=== PATIENT | female | born 1955 | race Caucasian/White ===

== ENCOUNTER 2023-11-12 11:12 | Outpatient (CLI) | payer MEDICARE, SELFPAY ==
--- NOTE | 2023-11-12 11:47 | XR_ITS ---
FINAL REPORT CLINICAL HISTORY: LOW BACK PAIN W/SCIATICA COMPARISON: None FINDINGS: 3 views of the lumbar spine were obtained. There is no evidence of fracture or dislocation. There is moderate degenerative change. Levoscoliosis is noted. There is mild anterolisthesis of L4 on L5. Facet arthropathy is noted in the lower lumbar spine. IMPRESSION: Moderate degenerative change without acute bony abnormality. Reviewed, Interpreted and Dictated by Danny Escalante III, MD Transcribed by Debbie Brock Authenticated and . [facility]
== END 2023-11-12 23:59 ==
PROVIDERS: PCP Family Medicine; Visit Provider Nurse Practitioner Family
DX: M54.40 Lumbago with sciatica, unspecified side (principal)
CPT/HCPCS: 72110

== ENCOUNTER → 2023-11-20 13:01 | Outpatient (POV) | payer MEDICARE, SELFPAY ==
[2023-11-20 13:11] VITALS: BP 143/98; PULSE 95; RESP 18; O2SAT 97; BMI 31.9
--- NOTE | 2023-11-20 13:24 | A.OFFVIS_ITS ---
HPI Data of Consult Patient: new to practice Consult date: 11/20/23 Requesting Physician: Ana Evans APRN Primary Care Provider: Rome Koehler MD Consult Narrative Reason for consult: Low back pain History of present illness: Ms. Mcknight is a 68 year old female who presents today as a new patient. She is a referral from Luisa Mondragon's office. Today she rates her pain a 9 out of 10. Patient states her pain is all in her low back. Patient states her pain in her low back has been going on for years and progressively worsened over time. Patient states she was seen at the [facility] and saw Dr. España who did do injections. She states that these did typically provide significant relief however over time they became less effective. She does state that she had a lumbar RFA that did provide improvement over the last 3 years and it is just now starting to wear off. She describes her pain as an aching, throbbing sensation that is severe. She states the pain does interfere with her ability perform activities of daily living such as cooking and cleaning. She states in the past she has not tolerated steroid injections due to it making her go psychotic. Patient is interested in repeating her prior injection of the lumbar RFA. Patient has tried [id number] Tylenol and ibuprofen along with heat and ice and topicals with minimal relief. Patient was tried on gabapentin with no additional help. Patient does use Aleve. Patient does have a history of colon cancer patient does states she has a history of SI issues as well. She is currently managed with Hayden 5 mg 3 times a day from her PCP. Her Wayne has been reviewed and is appropriate. CC: Ana Evans APRN [facility] Disclaimer: The information contained in this section may have been updated after the patient was seen, as this information can be updated by other users. Medical History (Updated 11/20/23 @ 15:14 by Ana Evans APRN) Colon cancer Depression HTN (hypertension) Sacroiliitis Surgical History (Updated 11/20/23 @ 13:14 by Salena Booth RN) History of colon resection Family History (Updated 11/20/23 @ 13:14 by Salena Booth RN) Other Diabetes Social History (Updated 11/20/23 @ 13:24 by Salena Booth RN) Smoking Status: Never smoker alcohol intake: never substance use type: denies use current occupational status: employed Travel in the last 8 weeks: None household members: family housing: house Review of Systems Review of Systems Review of systems:: pertinent systems reviewed and negative unless documented below Review of systems (narrative): Review of Systems: General: No recent weight changes, no fever, no sleep disturbances Respiratory: No cough, no shortness of air, no recurring pulmonary infections Cardiovascular/peripheral vascular: No chest pain, no palpitations, no edema, no shortness of breath Gastrointestinal: No new onset incontinence, normal bowel movements reported Genitourinary: No new onset incontinence Musculoskeletal:low back pain Psychiatric: [Normal mood/affect] Neurological: [Denies weakness in extremities], [denies balance issues] Meds Home Medications and Allergies Home Medications Medication Instructions Recorded Confirmed Type fluoxetine 40 mg capsule (Prozac) 40 mg PO BID 09/22/18 11/20/23 History hydrochlorothiazide 25 mg tablet 25 mg PO DAILY 09/22/18 11/20/23 History ibuprofen 800 mg tablet 800 mg PO TID #90 tabs 11/28/18 11/20/23 Rx meclizine 25 mg tablet (Motion 25 mg PO BID dizziness 7 days #14 10/16/20 11/20/23 Rx Relief (meclizine)) tabs ondansetron 4 mg disintegrating 4 mg PO Q8H PRN nausea and 10/16/20 11/20/23 Rx tablet vomiting 4 days #12 tabs hydrocodone 5 mg-acetaminophen 325 1 tab PO Q8HP PRN Pain 11/20/23 11/20/23 History mg tablet New Prescriptions to Start Prescriptions: Allergies Allergy/AdvReac Type Severity Reaction Status Date / Time No Known Allergies Allergy Verified 10/16/20 11:14 Objective Narrative: Physical Exam: General: Alert and oriented x3, no acute distress, pleasant and cooperative Lungs: Respirations even and unlabored, symmetrical chest expansion Eyes: PERRL Musculoskeletal: Flexion and extension of lumbar [spine] somewhat guarded secondary to pain, [antalgic gait noted] positive Kemps test Neurological: Speech clear, no gross sensory deficit Assessment and Plan *Assessment and plan (1) Lumbar facet arthropathy: Status: Acute Category: Medical Code(s): M47.816 - Spondylosis without myelopathy or radiculopathy, lumbar region (2) Low back pain: Status: Acute Qualifiers: Chronicity: chronic Back pain laterality: bilateral Sciatica presence: unspecified whether sciatica present Qualified Code(s): M54.50 - Low back pain, unspecified; G89.29 - Other chronic pain Category: Medical Code(s): M54.50 - Low back pain, unspecified Plan Patient is experiencing significant pain in her low back with limited range of motion of her lumbar spine and a positive Kemps test. I have discussed with the patient that she may benefit from a lumbar medial branch block bilaterally. Risk and benefits were discussed with the patient and she would like to proceed forward with this plan of care. Due to the patient's previous history of having side effects to the steroid we will just use the numbing medication for a diagnostic block. I have counseled the patient if she has a successful block we will plan on repeating it a second time and that again if she has significant relief we will proceed forward with the lumbar RFA at a later date. I will also proceed forward with ordering a MRI without contrast of her lumbar spine. Patient has tried and failed conservative treatment such as oral medication, heat and ice, topicals, physical therapy in the past, current home exercise and stretching program for longer than 6 weeks. Patient will be scheduled for a diagnostic lumbar medial branch block bilaterally L4-L5 and L5-S1 under fluoroscopic guidance. Patient has been instructed to contact the clinic with any concerns before the next appointment. Dr. Sorensen has reviewed this note and agrees with this plan of care. This note was dictated using voice recognition software and make contain errors or omissions.
== END ==
PROVIDERS: PCP Family Medicine; Visit Provider Nurse Practitioner Family
DX: M47.816 Spondylosis without myelopathy or radiculopathy, lumbar region (principal); M54.50 Low back pain, unspecified; G89.29 Other chronic pain
CPT/HCPCS: 99202; G0463

== ENCOUNTER 2023-12-02 13:37 | Day surgery (SDC) | payer MEDICARE, SELFPAY ==
[2023-12-02 14:00] VITALS: BP 163/84; PULSE 89; RESP 18; O2SAT 98; BMI 31.9
--- NOTE | 2023-12-02 14:23 | P.PCN_ITS ---
Procedure Date: 12/02/23 Time: 14:20 Anesthesiologist:: Holden Perez CRNA Complications:: None Pre-procedure Diagnosis:: Degenerative disc lumbar spine multilevels. Lumbar radiculopathy. Lumbar spondylosis. Multilevel lumbar facet arthropathy Post-procedure Diagnosis:: Same. Indications for Procedure:: Patient is a very pleasant 68-year-old female comes our clinic today for bilateral medial branch block/facet injection L4-5, L5-S1. Patient reports low back pain with standing, sitting, ambulation. She describes low back pain as constant, dull, aching. She describes having difficulty with flexion, extension, left and right rotation. She rates her pain 9/10. Procedure Details:: Informed consent was obtained and the risk and benefits of the procedure was explained to the patient. Patient was taken to the procedure room where n oninvasive monitors were placed, including noninvasive blood pressure cuff as well as pulse oximeter. The area over the lumbar spine was cleansed using chlorhexidine as a cleansing solution. I anesthetized the skin and subcutaneous tissues with 1% Lidocaine. I placed 22-gauge spinal needles into the facet joint/ medial branches of L4-L5, and L5-S1] bilaterally. Needle placement was confirmed with fluoroscopy. After confirmation of needle placement, each site was injected with 1 mL of 1% lidocaine and 0.25 % Marcaine and 10 mg of Depo- Medrol. A total of 80 mg of depo medrol was used for bilateral medial branch blocks ofL4-L5, and L5-S1] bilaterally. Patient tolerated the procedure without difficulty. There were no complications. Plan and Disposition:: Patient was discharged without incident.
[2023-12-02 14:30] VITALS: BP 164/89; PULSE 75; RESP 18; O2SAT 98
[2023-12-02] MEDS: methylPREDNISolone ACETATE 80MG/ML VIAL 80 MG (14:34)
[2023-12-02] MEDS: BUPIVACAINE 0.25% 10ML INJ 25 MG IJ (14:34)
[2023-12-02] MEDS: LIDOCAINE 1% 5ML PF VIAL 5 ML (14:34)
[2023-12-02 14:35] VITALS: BP 152/87; PULSE 76; RESP 18; O2SAT 97
== END 2023-12-02 14:30 | disposition home or self-care (01) ==
PROVIDERS: PCP Family Medicine; Visit Provider Nurse Anesthetist, Certified Registered
DX: M47.896 Other spondylosis, lumbar region (principal); M51.16 Intervertebral disc disorders with radiculopathy, lumbar region
CPT/HCPCS: 64493; 64494; J1040

== ENCOUNTER 2023-12-18 09:33 | Day surgery (SDC) | payer MEDICARE, SELFPAY ==
[2023-12-17 11:40] VITALS: BMI 31.6
[2023-12-18] VITALS (7 sets, daily range): BP systolic 96–148; BP diastolic 44–85; PULSE 68–92; RESP 16–18; TEMP 36.3–36.6; O2SAT 90–98
[2023-12-18] MEDS: LACTATED RINGERS 1000ML 1,000 ML 100 ML IV (10:42)
--- NOTE | 2023-12-18 11:27 | P.PNANES_ITS ---
[facility] Disclaimer: The information contained in this section may have been updated after the patient was seen, as this information can be updated by other users. Medical History Colon cancer Depression HTN (hypertension) Sacroiliitis Surgical History History of colon resection Family History Other Diabetes Heart disease Social History Smoking Status: Never smoker alcohol intake: never substance use type: denies use current occupational status: employed Travel in the last 8 weeks: None household members: family housing: house [facility] Anesthesia Checklist Patient Identification Patient Identification: Arm Band and Verbal (Name & ) Structural Data Admitted From: Home Planned Operative Procedure/s: Colonoscopy Consent for Planned Operative Procedure(s) Verified: Yes NPO Status Verified Time NPO: 00:00 Additional verifications Anesthesia Reactions: No Airway Assessment Mallampati Score:: Class III C-Spine Mobility Assessed: Yes TMJ Mobility Assessed: Yes Dentition: Good Dentition Neurological Assessment Level of Consciousness: Awake Hx Seizures: No Numbness or tingling in extremities: No Anesthesia Plan Anesthesia Risk discussed: Yes Anesthesia Plan: Verified ASA Class: II Anesthesia Type: MAC
--- NOTE | 2023-12-18 11:36 | HMH.SCOPE ---
Procedure: Date: 12/18/23 Patient Date of :: 1955 Procedure Performed:: Colonoscopy with polypectomy with snare Indications:: History of polyps Performing Provider:: Oliverio Mccullough MD Referring Provider:: Rome Koehler Sedation:: Propofol Procedure:: After placing the patient in the left lateral decubitus position, the colonoscopy was gently inserted into the rectum and under direct visualization advanced to the cecum which was identified by transillumination in the right lower quadrant, identification of the ileocecal valve, appendiceal orifice, and cecal strap. Color, texture, mucosa, and anatomy of the colon were carefully examined with the scope. Findings:: Anal canal: normal Rectum: normal Sigmoid colon: normal without polyps or inflammatory changes, residual stool and food debris seen Descending colon: normal without polyps or inflammatory changes, residual stool and food debris seen Splenic flexure: normal Transverse colon: normal without polyps or inflammatory changes, residual stool seen Hepatic flexure: normal Ascending colon: normal without polyps or inflammatory changes Cecum: 0.5 adenomatous polyp identified and removed with cold snare. Terminal ileum: not visualized Impression: Cecal polyp, colon prep not optimal Specimens:: Cecal polyp Recommendations:: Follow up examination in about THREE years or so, sooner if clinically indicated in view of findings of polyps. Complications:: None Estimated blood obtained (mL): 0 Colonoscopy Component Colonoscopy Component Was a colonoscopy performed during today's procedure?: Yes Recommended follow up colonoscopy of at least 10 years?: No If no, follow up colonoscopy recommended in ___ years?: Three Reason for not recommending >/= 10 yr follow-up interval?: Polyp
--- NOTE | 2023-12-18 11:46 | SUR.PHASEII ---
1138: Oral airway in place. O2 nasal cannula 3L. Krystyna Farias RN at bedside. Pt unresponsive to name and touch. Will continue to monitor.
--- NOTE | 2023-12-18 12:04 | SUR.PHASEII ---
1200: Pt awake and sitting up. Drinking a soft drink.
== END 2023-12-18 12:22 | disposition home or self-care (01) ==
PROVIDERS: PCP Family Medicine; Visit Provider Internal Medicine Gastroenterology
PROC: (CPT 45385; principal; 2023-12-18 11:00)
DX: Z12.11 Encounter for screening for malignant neoplasm of colon (principal); Z86.010 Personal history of colon polyps; D12.0 Benign neoplasm of cecum
CPT/HCPCS: 45385; 88305; J2704

== ENCOUNTER 2024-02-10 10:02 | Emergency (ER) | payer MEDICARE, SELFPAY ==
[2024-02-10 10:04] VITALS: BP 148/88; PULSE 88; RESP 16; TEMP 36.7; O2SAT 93; BMI 31.6
[2024-02-10 10:10] VITALS: BP 131/67; PULSE 90; O2SAT 95
[2024-02-10] MEDS: METHOCARBAMOL 500MG TABLET 1000 MG PO (10:25)
[2024-02-10] MEDS: ACETAMINOPHEN 500MG TAB 1000 MG PO (10:25)
[2024-02-10] MEDS: LIDOCAINE 5% TRANSDERMAL PATCH 1 EACH TP (10:26)
[2024-02-10] MEDS: DEXAMETHASONE 4MG TABLET 10 MG PO (10:26)
[2024-02-10] MEDS: IBUPROFEN 800 MG TABLET PO (10:26)
--- NOTE | 2024-02-10 10:45 | CT_ITS ---
FINAL REPORT TECHNIQUE: Axial images were performed through the lumbar spine by computed tomography. Sagittal reconstruction images were also performed. This study was performed with techniques to keep radiation doses as low as reasonably achievable, (ALARA). Individualized dose reduction techniques using automated exposure control or adjustment of mA and/or kV according to the patient''s size were employed. CLINICAL HISTORY: R flank and sciatic pain after lifting injry FINDINGS: No fracture is identified. There is levoscoliosis. There is mild anterolisthesis of L4 on 5. L1-2: An annular bulge is present. Facet arthropathy and osteophytes are present. There is mild bilateral neural foraminal narrowing. L2-3: An annular bulge is present. Facet arthropathy and osteophytes are present. There is a right paracentral inferiorly extruded disc resulting in right L3 nerve root impingement. There is severe right and moderate left neural foraminal narrowing. L3-4: An annular disc bulge is present. There is mild bilateral neural foraminal narrowing. L4-5: An annular bulge and facet arthropathy are present. There is moderate right and severe left neural foraminal narrowing. L5-S1: An annular bulge and facet arthropathy are present. There is mild bilateral neural foraminal narrowing. IMPRESSION: Right paracentral inferiorly extruded disc at L2-3 results in right L3 nerve root impingement and severe right neural foraminal narrowing. Multilevel degenerative disc disease and spondylosis. Reviewed, Interpreted and Dictated by Danny Escalante III, MD Transcribed by Liat Valdez Authenticated and . [facility]
--- NOTE | 2024-02-10 10:51 | ED_ITS ---
Discharge Plan Disposition Patient Disposition: Home, Self-Care Prescriptions Prescriptions: New dexamethasone 6 mg tablet 6 mg PO DAILY Qty: 5 0RF methocarbamol 750 mg tablet 1,500 mg PO TID 5 Days Qty: 30 0RF lidocaine 5 % adhesive patch,medicated 1 patch topical DAILY Qty: 30 0RF Rx Instructions: leave on most painful area for up to 12 hrs No Action hydrochlorothiazide 25 mg tablet 25 mg PO DAILY aspirin 81 mg Capsule 81 mg PO DAILY Referrals Follow up/Referrals: Rome Koehler MD [Primary Care Provider] - See instructions Activity Restrictions/Add. Instructions Additional Instructions/Restrictions: Call your family doctor to establish care for this visit to the emergency department and schedule follow-up within 48 hours to ensure improvement. If you have any worsening of your condition or any other concerning signs or symptoms, return to the emergency department or your primary care doctor for further evaluation. Clinical Impressions Clinical Impression: Sciatica, Lumbar radiculopathy Instructions Patient Instructions: DI for Low Back Pain Discharge ED Provider: Emeterio Stanley General Adult [facility] General Chief complaint: Back Pain/Injury Stated complaint: WC03/31, back/Rt side pain Time Seen by Provider: 02/10/24 10:11 Mode of Arrival: Wheelchair Source of Information: Patient Limitations: No Limitations Description of Symptoms (Recalled from ER Triage Doc. by RN): c/o lower right back pain that goes into her right leg, states she was lifting a pt 8 days ago when her back started hurting. She has tried to get in her pain mgn doctor but has not been able too. Pain increases when she stands or walks History of Present Illness HPI narrative: 68-year-old female history of chronic low back pain currently following with Dr. Sorensen in pain management who receives injections and had lumbar nerve ablation 1 month prior to this visit presenting with lower back pain. Patient states that 8 days prior to this visit, she was at work lifting a patient, felt a popping sensation in her lower back on the right side, about an hour after that started having severe pain in her right flank/right buttock that radiated down the lateral and anterior part of her leg. Goes just below the knee. No bowel or bladder incontinence, saddle anesthesia, weakness, but patient did have a fall a couple days prior to this visit secondary to severe pain. Has been taking Aleve without much relief. Contacted her pain clinic, they stated they are able to see her next week, 02/15, but given increased pain, patient came to the emergency department today. Requesting MRI Please note that above description of symptoms, in this electronic medical record under categorization of recalled from ER triage doctor by RN are reflective of an initial nursing assessment, however, is not reflective of my full history and physical exam that was personally taken and clarified. Consequentially, this preceding description of symptoms, which may include the patient's categorized chief complaint in the EMR, do not reflect my personal clinical impression, and the ultimate description of history of present illness and patient stated complaints should be deferred to this section of the note. Unless stated otherwise or congruent with this section of the note, additional signs, symptoms, or incongruence should be interpreted as inaccurate with my clinical impression. Related Data Home Medications Medication Instructions Recorded Confirmed hydrochlorothiazide 25 mg tablet 25 mg PO DAILY 09/22/18 12/02/23 aspirin 81 mg capsule 81 mg PO DAILY 12/17/23 12/17/23 Previous Rx's Medication Instructions Recorded dexamethasone 6 mg tablet 6 mg PO DAILY #5 tabs 02/10/24 lidocaine 5 % topical patch 1 patch topical DAILY #30 ea 02/10/24 methocarbamol 750 mg tablet 1,500 mg (2 x 750 mg) PO TID 5 02/10/24 days #30 tabs Allergies Allergy/AdvReac Type Severity Reaction Status Date / Time No Known Allergies Allergy Verified 12/18/23 10:43 [facility] Disclaimer: The information contained in this section may have been updated after the patient was seen, as this information can be updated by other users. Medical History Colon cancer Depression HTN (hypertension) Sacroiliitis Surgical History History of colon resection Family History Other Diabetes Heart disease Social History Smoking Status: Never smoker alcohol intake: never substance use type: denies use current occupational status: employed Travel in the last 8 weeks: None household members: family housing: house ROS Obtained: Yes All systems reviewed & no additional complaints except as documented Physical Exam General General appearance: alert and in no apparent distress Head Head exam: atraumatic and normocephalic Eye Eye exam: Present normal appearance, PERRL and EOMI ENT ENT exam: Present mucous membranes moist Neck Neck exam: Present normal inspection, full ROM and trachea midline Respiratory Respiratory exam: Absent respiratory distress, wheezes, stridor, accessory muscle use or prolonged expiratory phase Cardiovascular Cardiovascular exam: Present normal rhythm Abdominal Exam Abdominal exam: Present soft; Absent distention, tenderness, guarding, rebound or rigidity Extremities Exam Extremities exam: Absent edema Back Exam Back exam: Present tenderness and other (Patient laying on her left side with hips and knees flexed for maximum comfort. Tenderness about right sciatic notch into the right buttock. Straight leg positive. Neurovascularly intact distally) Neurological Exam Neurological exam: Present alert, oriented X3, CN II-XII intact and normal gait; Absent motor sensory deficit Skin Skin exam: Present warm and dry; Absent diaphoresis or erythema Medical Decision Making Medical Records Medical records reviewed: Yes I reviewed the patient's medical records. Wayne Inquiry Pt receiving controlled substance: No Wayne was queried for this patient: No Vital Signs: 02/10/24 10:04 02/10/24 10:10 02/10/24 11:00 Temperature 98.0 F Temperature Source Oral Pulse Rate 90 89 Pulse Rate [Left Radial] 88 Respiratory Rate 16 Blood Pressure 131/67 130/59 L Blood Pressure [Right Arm] 148/88 H Blood Pressure Mean 95 Blood Pressure Mean [Right Arm] 108 Blood Pressure Source [Right Arm] Automatic Cuff Blood Pressure Position [Right Arm] Sitting 02 Sat by Pulse Oximetry 93 L 95 95 Oxygen Delivery Method Room Air Room Air Room Air 02/10/24 11:31 Temperature Temperature Source Pulse Rate 58 L Pulse Rate [Left Radial] Respiratory Rate Blood Pressure 110/50 L Blood Pressure [Right Arm] Blood Pressure Mean Blood Pressure Mean [Right Arm] Blood Pressure Source [Right Arm] Blood Pressure Position [Right Arm] 02 Sat by Pulse Oximetry 94 L Oxygen Delivery Method Room Air Orders (Tests/Meds): ED MEDICATIONS Generic Name Dose Route Start Last Admin Trade Name Freq PRN Reason Stop Dose Admin Methocarbamol 1,000 mg 02/10/24 10:30 02/10/24 10:25 Methocarbamol 500mg Tablet PO 03/11/24 10:29 1,000 mg BID JASPAL Administration Discontinued Medications Generic Name Dose Route Start Last Admin Trade Name Shavonne PRN Reason Stop Dose Admin Acetaminophen 1,000 mg 02/10/24 10:16 02/10/24 10:25 Acetaminophen 500mg Tab PO 02/10/24 10:17 1,000 mg ONCE ONE Administration Dexamethasone 10 mg 02/10/24 10:23 02/10/24 10:26 Dexamethasone 4mg Tablet PO 02/10/24 10:24 10 mg ONCE ONE Administration Ibuprofen 800 mg 02/10/24 10:17 02/10/24 10:26 Ibuprofen 800 Mg Tablet PO 02/10/24 10:18 800 mg ONCE ONE Administration Lidocaine 1 each 02/10/24 10:16 02/10/24 10:26 Lidocaine 5% Transdermal Patch TP 02/10/24 10:17 1 each ONCE ONE Administration ORDERS Category Date Time Status CT lumbar spine wo con Stat Cat Scan 02/10/24 10:45 Taken Medical Decision Narrative: 68-year-old female history of chronic low back pain currently following with Dr. Sorensen in pain management who receives injections and had lumbar nerve ablation 1 month prior to this visit presenting with lower back pain. Patient states that 8 days prior to this visit, she was at work lifting a patient, felt a popping sensation in her lower back on the right side, about an hour after that started having severe pain in her right flank/right buttock that radiated down the lateral and anterior part of her leg. Goes just below the knee. No bowel or bladder incontinence, saddle anesthesia, weakness, but patient did have a fall a couple days prior to this visit secondary to severe pain. Has been taking Aleve without much relief. Contacted her pain clinic, they stated they are able to see her next week, 02/15, but given increased pain, patient came to the emergency department today. Requesting MRI. History obtained with patient and . On arrival, patient hemodynamically stable, mildly hypertensive. On my evaluation, patient laying on her left side with hips flexed for maximum comfort. She does have tenderness about right sciatic notch and right buttock with straight leg positive. Neurovascular intact distally. No saddle anesthesia. Rectal tone deferred at this time given no other neurologic complaints and well-appearing overall. Is explained to patient that MRI would not be obtained in the emergency department for various reasons, patient voiced understanding. Because she did have a fall, CT of the lower back will be obtained to evaluate for compression fracture given acute on chronic pain. Patient given Toradol, Decadron, lidocaine patch, methocarbamol, Tylenol p.o. Independent interpretation of workup demonstrated nonactionable CT scan of the lumbar spine. See radiology report for final read. On reevaluation patient feeling much better. Because patient at baseline without signs or symptoms of clinical decompensation, deemed appropriate for discharge. Results were relayed to patient who voiced understanding and were agreeable to outpatient management and follow up. I discussed my clinical impression with patient and answered all questions. At this time, the evidence for any other entities in the differential is insufficient to warrant any further testing or ED observation. This was explained as well. Advisory was given that persistent or worsening symptoms require further evaluation. I confirmed the understanding of this discussion. Critical Care Critical Care Time Critical Care Time: No
[2024-02-10 11:00] VITALS: BP 130/59; PULSE 89; O2SAT 95
--- NOTE | 2024-02-10 11:05 | PC.NURSE ---
PT TO CT
--- NOTE | 2024-02-10 11:15 | PC.NURSE ---
PT RETURNED FROM CT
--- NOTE | 2024-02-10 11:22 | PC.NURSE ---
ROUNDED ON PT, RESTING ON LEFT SIDE. REPORTS FEELING BETTER. UPDATED ON POC. NO NEEDS AT THIS TIME. CALL LIGHT WITHIN REACH
[2024-02-10 11:31] VITALS: BP 110/50; PULSE 58; O2SAT 94
--- NOTE | 2024-02-10 11:53 | PC.NURSE ---
DR BHANDARI AT BEDSIDE TO REEVALUATE PT AND UPDATE ON POC
[2024-02-10 12:10] VITALS: BP 119/83; PULSE 82; RESP 18; TEMP 36.7; O2SAT 95
--- NOTE | 2024-02-11 03:24 | PC.NURSE ---
received final ct read and reviewed with do peng. No new orders at this time. Will ask [facility] to contact dr wagner office to make sure they received a copy for continuity of care.
== END 2024-02-10 12:10 | disposition home or self-care (01) ==
PROVIDERS: Emergency Provider Emergency Medicine; PCP Family Medicine
DX: M54.31 Sciatica, right side (principal); M54.16 Radiculopathy, lumbar region; I10 Essential (primary) hypertension
CPT/HCPCS: 72131; 99284